=== PATIENT | female | born 1945 | race Caucasian/White ===

== ENCOUNTER 2019-11-06 23:45 | Inpatient (IN) | payer OTHER ==
[~2019-11-06] VITALS: Ht 137.2 cm; Wt 33.6 kg
[~2019-11-06 23:45] MED LIST: NAMENDA5 MG; ZANTAC150 M3
== END 2019-11-12 18:55 | DRG 481 ==
LOC: ER 23:45 → SEC-K 11-07 12:35 → O/R 11-07 12:35 → SURH 11-07 12:35 → SEC-K 11-07 15:12 → O/R 11-07 16:10 → SURH 11-07 22:29
PROVIDERS: ADMIT Orthopaedic Surgery
PROC: 4A033R1 Measurement of Arterial Saturation, Peripheral, Percutaneous Approach (ICD-10-PCS; 2019-11-07)
PROC: BW28ZZZ Computerized Tomography (CT Scan) of Head (ICD-10-PCS; 2019-11-07)
PROC: 0QS736Z Reposition Left Upper Femur with Intramedullary Internal Fixation Device, Percutaneous Approach (ICD-10-PCS; principal; 2019-11-07 15:00)
PROC: 30233N1 Transfusion of Nonautologous Red Blood Cells into Peripheral Vein, Percutaneous Approach (ICD-10-PCS; 2019-11-10)
DX: S72.142A Displaced intertrochanteric fracture of left femur, initial encounter for closed fracture (principal); D62 Acute posthemorrhagic anemia; R41.3 Other amnesia

== ENCOUNTER 2020-02-03 11:28 | Outpatient (CLI) | payer OTHER | END 2020-02-03 11:30 | disposition home or self-care (01) | LOC: RAD 11:28 | PROVIDERS: ATTEND Orthopaedic Surgery | DX: M25.562 Pain in left knee (principal) ==

== ENCOUNTER 2020-02-19 14:53 | Outpatient (CLI) | payer OTHER | END 2020-02-19 14:54 | disposition home or self-care (01) | LOC: RAD 14:53 | PROVIDERS: ATTEND Orthopaedic Surgery | DX: S72.142D Displaced intertrochanteric fracture of left femur, subsequent encounter for closed fracture with routine healing (principal) ==

== ENCOUNTER 2020-11-09 16:06 | Emergency (ER) | payer OTHER ==
[~2020-11-09] VITALS: Ht 152.4 cm; Wt 57.2 kg
== END 2020-11-10 13:17 | disposition home or self-care (01) ==
LOC: ER 16:06
DX: S82.142A Displaced bicondylar fracture of left tibia, initial encounter for closed fracture (principal); M25.562 Pain in left knee; W10.8XXA Fall (on) (from) other stairs and steps, initial encounter; Y93.89 Activity, other specified; Y92.018 Other place in single-family (private) house as the place of occurrence of the external cause; Y99.8 Other external cause status; Z01.812 Encounter for preprocedural laboratory examination; Z01.810 Encounter for preprocedural cardiovascular examination; Z20.822 Contact with and (suspected) exposure to COVID-19

== ENCOUNTER 2020-11-25 17:19 | Outpatient (CLI) | payer OTHER ==
[2020-11-30] MEDS ORDERED: RIVASTIGMINE1 EAC1 TD (10:43)
[2020-11-30] MEDS ORDERED: CLONAZEPAM0.5 MG PO (10:43)
[2020-11-30] MEDS ORDERED: MEMANTINE HCL5 MG PO (10:44)
[2020-11-30] MEDS ORDERED: ROSUVASTATIN CAL5 MG PO (10:44)
[2020-11-30] MEDS ORDERED: VITAMIN D31250 MCG PO (10:44)
[2020-12-01] MEDS ORDERED: ULTRAM50 MG PO (12:21)
== END 2020-11-25 17:24 | disposition home or self-care (01) ==
LOC: RAD 17:19
PROVIDERS: ATTEND Orthopaedic Surgery
DX: M25.062 Hemarthrosis, left knee (principal); M25.562 Pain in left knee

== ENCOUNTER 2020-12-08 10:49 | Outpatient (CLI) | payer OTHER ==
[~2020-12-08 10:49] MED LIST changes: +CLONAZEPAM0.5 MG PO; +MEMANTINE HCL5 MG PO; +RIVASTIGMINE1 EAC1 TD; +ROSUVASTATIN CAL5 MG PO; +ULTRAM50 MG PO; +VITAMIN D31250 MCG PO
== END 2020-12-08 10:51 | disposition home or self-care (01) ==
LOC: LAB 10:49
PROVIDERS: ATTEND Orthopaedic Surgery
DX: E56.1 Deficiency of vitamin K (principal); M81.8 Other osteoporosis without current pathological fracture; E21.3 Hyperparathyroidism, unspecified; D55.8 Other anemias due to enzyme disorders; M85.88 Other specified disorders of bone density and structure, other site